=== PATIENT | male | born 1950 | race Caucasian/White ===

== ENCOUNTER 2016-12-26 04:12 | Emergency (ER) | payer BC ==
[2016-12-26] MEDS ORDERED: ASPIRIN 81 MG CHEWABLE TAB PO ONE (04:19)
--- NOTE | 2016-12-26 04:36 | EDPHY ---
H & P Stated Complaint: right sided CP to back and difficulty breathing since last night HPI/ROS: HPI CHIEF COMPLAINT: Right-sided chest pain sharp stabbing worse with inspiration HISTORY OF PRESENT ILLNESS: This patient is 66-year-old male significant past medical history for hypertension, hyperlipidemia and zev-cycnpjg-zouwutipi diabetes he is visiting [facility] from [place], he presents emergency room for right-sided sharp stabbing pleuritic chest pain worse when he takes a deep breath in. He tells me this started around 730 year 8 o'clock last night it has been consistent throughout the entire night. The pain is anterior right chest wall that radiates directly posterior to his scapula. Worse with inspiration. He denies cough, recent illness. He denies left-sided chest pain denies nausea, diaphoresis, he does endorse shortness of breath with this. No history of PE DVT. No history of ACS. No history of coronary artery disease. Denies abdominal pain. Past Medical History: Hypertension, hyperlipidemia, xll-ljjdilc-mqevuttwy diabetes, lung cyst Past Surgical History: No significant recent surgical history Social History: Denies daily use drugs alcohol tobacco products lives in [place]. Family History: Noncontributory ROS REVIEW OF SYSTEMS: A comprehensive 10 point review of systems is otherwise negative aside from elements mentioned in the history of present illness. Exam Constitutional appears well nontoxic triage nursing summary reviewed, vital signs reviewed, awake/alert. Eyes normal conjunctivae and sclera, EOMI, PERRLA. HENT normal inspection, atraumatic, moist mucus membranes, no epistaxis, neck supple/ no meningismus, no raccoon eyes. Respiratory clear to auscultation bilaterally, normal breath sounds, no respiratory distress, no wheezing. Cardiovascular rate normal, regular rhythm, no murmur, no edema, distal pulses normal. Gastrointestinal soft, non-tender, no rebound, no guarding, normal bowel sounds, no distension, no pulsatile mass. Genitourinary no CVA tenderness. Musculoskeletal no midline vertebral tenderness, full range of motion, no calf swelling, no tenderness of extremities, no meningismus, good pulses, neurovascularly intact. Skin pink, warm, & dry, no rash, skin atraumatic. Neurologic awake, alert and oriented x 3, AAOx3, moves all 4 extremities equally, motor intact, sensory intact, CN II-XII intact, normal cerebellar, normal vision, normal speech. Psychiatric normal mood/affect. Heme/Lymph/Immune no lymphadenopathy. Differential diagnosis includes but is not limited to: ACS, atypical chest pain , pneumothorax, pneumonia, pulmonary embolism, aortic dissection, congestive heart failure, tumor, musculoskeletal pain, esophageal pain, GERD, peptic ulcer disease, pancreatitis Medical Decision Making: Plan for this patient full front desk monitor, IV establishment, blood work, D-dimer, chest x-ray, EKG, troponin full-dose aspirin. Re-evaluation: EKG interpretation by me on record in [facility] system. Impression time of EKG 4:35 a.m., this is sinus arrhythmia rate of 88 there is no acute ischemic change appreciated. Specifically no ST elevation, ST depression. Q-waves are noted in lead 3 AVF. There is no old EKG to compare this to as [place]. ED x-ray chest one view: Negative for acute cardiopulmonary disease. Image interpreted by myself. 0529: Patient is feeling much better after oral aspirin. He states the sharp stabbing pain when he takes a deep breath in has greatly reduced. I had a great long discussion with him about potentially having a CT scan of his chest to rule out aortic dissection and/or PE given his symptoms. He does have risk factors including 66 years of age, obesity, typical pleuritic pain recent airline flights and his does report that he is often in mobile. It is reasonable to proceed with a CT angiogram of his chest he is agreeable for this. 0559: CT scan of the angiogram chest for pulmonary embolism and aortic dissection The results of the study are negative for PE or dissection however is noted there is a 9 mm right upper lobe nodule also bronchitis is present in his lungs. Also CAD LAD. The study was read by Dr. Smith Fatima. I viewed the images myself on the PACS system. 0600: Given this patient had right-sided pleuritic pain sharp stabbing is most likely consistent with bronchitis. This been present since 0730 last night or close to 12 hours. He has a normal nonischemic EKG his troponin is negative. D -dimer negative. His CT angiogram does not show dissection or PE. He will need to follow up with his primary care doctor about the right upper lobe pulmonary nodule that is 9 mm. Also I will place him on albuterol inhaler for his bronchitis. He does understand return emergency room if develops any worsening chest pain shortness of breath or questions or concerns. 0618: Patient receiving repeat troponin EKG at this time. If these are normal highly unlikely to be acute coronary syndrome given right-sided sharp stabbing pleuritic pain this improved after aspirin and Toradol. CT scan shows bronchitis. Patient is already aware of the pulmonary nodule. He will be prescribed albuterol inhaler. Unlikely to have ACS with 2 normal troponins given pain started 730 last night. 0627: This is a repeat EKG time a repeat EKG 6:24 a.m., sinus rhythm rate of 86 no acute ischemic changes appreciated. Image interpreted by myself. This is unchanged from his previous EKG. Source: Patient - Personal History Current Tetanus/Diphtheria Vaccine: Yes Current Tetanus Diphtheria and Acellular Pertussis (TDAP): Yes Tetanus Vaccine Date: 2013 - Medical/Surgical History Hx Asthma: No Hx Chronic Respiratory Disease: No Hx Diabetes: Yes Hx Cardiac Disease: No Hx Renal Disease: No Hx Cirrhosis: No Hx Alcoholism: No Hx HIV/AIDS: No Hx Splenectomy or Spleen Trauma: No Other PMH: HTN, thyroid removed on R, appy, DM, - Social History Smoking Status: Former smoker Constitutional: Initial Vital Signs Temperature (C) 36.5 C 12/26/16 04:13 Heart Rate 91 12/26/16 04:13 Respiratory Rate 18 12/26/16 04:13 Blood Pressure 166/93 H 12/26/16 04:13 O2 Sat (%) 97 12/26/16 04:13 O2 Delivery Mode Room Air Allergies/Adverse Reactions: sertraline [From Zoloft] Allergy (Verified 12/26/16 04:17) Abdominal Cramping Home Medications: Medication Instructions Recorded ASPIRIN 12/26/16 Albuterol [Proventil Inhaler HFA 1 - 2 puffs IH Q4H #1 mdi 12/26/16 (*)] Effexor 12/26/16 Levothyroxine 12/26/16 Lisinopril 12/26/16 Metformin HCl 12/26/16 VITAMIN D 12/26/16 Medical Decision Making - Data Points Laboratory Results: Laboratory Results 12/26/16 04:45 12/26/16 04:45 12/26/16 12/26/16 12/26/16 06:20 04:45 04:45 WBC RBC Hgb Hct MCV MCH MCHC RDW Plt Count MPV Neut % (Auto) Lymph % (Auto) Talbot % (Auto) Eos % (Auto) Baso % (Auto) Nucleat RBC Rel Count Absolute Neuts (auto) Absolute Lymphs (auto) Absolute Monos (auto) Absolute Eos (auto) Absolute Basos (auto) Absolute Nucleated RBC Immature Gran % Immature Gran # PT 12.5 SEC SEC (12.0-15.0) INR 0.94 (0.83-1.16) APTT 27.6 SEC SEC (23.0-38.0) D-Dimer 0.33 ug/mLFEU ug/mLFEU (0.00-0.50) Sodium 137 mEq/L mEq/L (134-144) Potassium 4.6 mEq/L mEq/L (3.5-5.2) Chloride 102 mEq/L mEq/L (97-110) Carbon Dioxide 22 mEq/l mEq/l (22-31) Anion Gap 13 mEq/L mEq/L (8-16) BUN 18 mg/dL mg/dL (7-23) Creatinine 1.0 mg/dL mg/dL (0.7-1.3) Estimated GFR > 60 Glucose 216 mg/dL H mg/dL (70-100) Calcium 9.9 mg/dL mg/dL (8.5-10.4) Magnesium 1.6 mg/dL mg/dL (1.6-2.3) Total Bilirubin 0.8 mg/dL mg/dL (0.1-1.4) Conjugated Bilirubin 0.5 mg/dL mg/dL (0.0-0.5) Unconjugated Bilirubin 0.3 mg/dL mg/dL (0.0-1.1) AST 45 IU/L IU/L (17-59) ALT 67 IU/L IU/L (21-72) Alkaline Phosphatase 107 IU/L IU/L (38-126) Creatine Kinase 58 IU/L IU/L (0-224) CK-MB (CK-2) Fraction 0.90 ng/mL ng/mL (0-3.19) Troponin I Pending < 0.012 ng/mL ng/mL (0-0.034) NT-Pro-B Natriuret Pep 32 pg/mL pg/mL (0-125) Total Protein 7.1 g/dL g/dL (6.3-8.2) Albumin 4.2 g/dL g/dL (3.5-5.0) Lipase 264.0 IU/L IU/L (23-300) 12/26/16 04:45 WBC 14.97 10^3/uL H 10^3/uL (3.80-9.50) RBC 5.12 10^6/uL 10^6/uL (4.40-6.38) Hgb 14.8 g/dL g/dL (13.7-17.5) Hct 44.9 % % (40.0-51.0) MCV 87.7 fL fL (81.5-99.8) MCH 28.9 pg pg (27.9-34.1) MCHC 33.0 g/dL g/dL (32.4-36.7) RDW 13.8 % % (11.5-15.2) Plt Count 265 10^3/uL 10^3/uL (150-400) MPV 10.5 fL fL (8.7-11.7) Neut % (Auto) 67.3 % % (39.3-74.2) Lymph % (Auto) 21.8 % % (15.0-45.0) Talbot % (Auto) 6.5 % % (4.5-13.0) Eos % (Auto) 2.5 % % (0.6-7.6) Baso % (Auto) 0.9 % % (0.3-1.7) Nucleat RBC Rel Count 0.0 % % (0.0-0.2) Absolute Neuts (auto) 10.08 10^3/uL H 10^3/uL (1.70-6.50) Absolute Lymphs (auto) 3.26 10^3/uL H 10^3/uL (1.00-3.00) Absolute Monos (auto) 0.97 10^3/uL H 10^3/uL (0.30-0.80) Absolute Eos (auto) 0.38 10^3/uL 10^3/uL (0.03-0.40) Absolute Basos (auto) 0.13 10^3/uL H 10^3/uL (0.02-0.10) Absolute Nucleated RBC 0.00 10^3/uL 10^3/uL (0-0.01) Immature Gran % 1.0 % % (0.0-1.1) Immature Gran # 0.15 10^3/uL H 10^3/uL (0.00-0.10) PT INR APTT D-Dimer Sodium Potassium Chloride Carbon Dioxide Anion Gap BUN Creatinine Estimated GFR Glucose Calcium Magnesium Total Bilirubin Conjugated Bilirubin Unconjugated Bilirubin AST ALT Alkaline Phosphatase Creatine Kinase CK-MB (CK-2) Fraction Troponin I NT-Pro-B Natriuret Pep Total Protein Albumin Lipase Medications Given: Discontinued Medications Aspirin (Aspirin) 324 mg PO EDNOW ONE Stop: 12/26/16 04:20 Last Admin: 12/26/16 04:50 Dose: 324 mg Sodium Chloride (Ns) 1,000 mls @ 0 mls/hr IV ONCE ONE PRN Reason: Wide Open Stop: 12/26/16 05:46 Last Admin: 12/26/16 06:22 Dose: 1,000 mls Ketorolac Tromethamine (Toradol) 15 mg IVP EDNOW ONE Stop: 12/26/16 05:31 Last Admin: 12/26/16 05:44 Dose: 15 mg Departure - Departure Disposition: Home, Routine, Self-Care Clinical Impression: Pleurisy, Pulmonary nodule, Bronchitis Condition: Good Instructions: Acute Bronchitis (ED), Pulmonary Nodules (ED), Wheezing (ED) Additional Instructions: 1. You need to follow up with her primary care doctor when you go back home in [place] about the pulmonary nodule. This is 9 mm in your right upper lung. 2. Return emergency room immediately if he develops worsening symptoms includes chest pain, shortness of breath. Referrals: KACEY CONNELL [Other] - As per Instructions Prescriptions: Albuterol [Proventil Inhaler HFA (*)] 1 - 2 puffs IH Q4H #1 mdi
--- NOTE | 2016-12-26 04:53 | CPEKG ---
Heart Rate: 88 RR Interval: 682 P-R Interval: 172 QRSD Interval: 84 QT Interval: 356 QTC Interval: 431 P [place]: 19 QRS [place]: -19 T Wave [place]: 38 EKG Severity - OTHERWISE NORMAL ECG - EKG Impression: SINUS ARRHYTHMIA, RATE 77-103 EKG Impression: BORDERLINE LEFT AXIS DEVIATION Electronically Signed By: Nakul Ordonez 26-Dec-2016 07:11:53
[2016-12-26 04:55] LABS: ABSOLUTE IMMATURE GRANULOCYTES 0.15 10^3/uL (0.00-0.10); ADD DIFF? NO; ADD MORPH? NO; ADD SCAN? NO; ATYPICAL LYMPHOCYTE FLAG 0 (0-99); FRAGMENT RBC FLAG 0 (0-99); HEMATOCRIT 44.9 % (40.0-51.0); HEMOGLOBIN 14.8 g/dL (13.7-17.5); LEFT SHIFT FLG 10 (0-99); LIPEMIA HEMOLYSIS FLAG 80 (0-99); MEAN CELL HEMOGLOBIN 28.9 pg (27.9-34.1); MEAN CELL VOLUME 87.7 fL (81.5-99.8); MEAN PLATELET VOLUME 10.5 fL (8.7-11.7); PLATELET CLUMPS FLAG 10 (0-99); PLATELET COUNT 265 10^3/uL (150-400); RED BLOOD CELL COUNT 5.12 10^6/uL (4.40-6.38); RED CELL DISTRIBUTION WIDTH 13.8 % (11.5-15.2)
[2016-12-26 05:04] LABS: INR 0.94 (0.83-1.16); PROTIME(PATIENT) 12.5 SEC (12.0-15.0)
[2016-12-26 05:05] LABS: APTT 27.6 SEC (23.0-38.0)
[2016-12-26 05:07] LABS: ALANINE AMINOTRANSFERASE 67 IU/L (21-72); ALBUMIN 4.2 g/dL (3.5-5.0); ALKALINE PHOSPHATASE 107 IU/L (38-126); ANION GAP 13 mEq/L (8-16); ASPARTATE AMINOTRANSFERASE 45 IU/L (17-59); BILIRUBIN,TOTAL 0.8 mg/dL (0.1-1.4); BILIRUBIN-CONJUGATED 0.5 mg/dL (0.0-0.5); BILIRUBIN-UNCONJUGATED 0.3 mg/dL (0.0-1.1); CALCIUM 9.9 mg/dL (8.5-10.4); CARBON DIOXIDE 22 mEq/l (22-31); CHLORIDE 102 mEq/L (97-110); GLOMERULAR FILTRATION RATE > 60; GLUCOSE 216 mg/dL (70-100); MAGNESIUM 1.6 mg/dL (1.6-2.3); POTASSIUM 4.6 mEq/L (3.5-5.2); SODIUM 137 mEq/L (134-144); TOTAL PROTEIN 7.1 g/dL (6.3-8.2)
[2016-12-26 05:18] LABS: TROPONIN I < 0.012 ng/mL (0-0.034)
[2016-12-26] MEDS ORDERED: IOPAMIDOL (ISOVUE 370) 100 ML BTL IV ONE (05:24)
[2016-12-26] MEDS ORDERED: KETOROLAC 30 MG/1 ML SDV IVP ONE (05:30)
[2016-12-26] MEDS ORDERED: KETOROLAC 15 MG/1 ML SDV ONE (05:44)
[2016-12-26] MEDS ORDERED: NS 1,000 ML IV ONE (05:45)
[2016-12-26 06:23] VITALS: PULSE 83; RESP 16
--- NOTE | 2016-12-26 06:27 | CPEKG ---
Heart Rate: 86 RR Interval: 698 P-R Interval: 180 QRSD Interval: 86 QT Interval: 356 QTC Interval: 426 P Freedom: 30 QRS [place]: -12 T Wave [place]: 58 EKG Severity - NORMAL ECG - EKG Impression: SINUS RHYTHM Electronically Signed By: Nakul Ordonez 26-Dec-2016 07:11:53
[2016-12-26 07:06] VITALS: BP 167/98; TEMP 98.1; O2SAT 94
== END 2016-12-26 07:05 | disposition home or self-care (01) ==
DX: J40 Bronchitis, not specified as acute or chronic (principal); R91.1 Solitary pulmonary nodule; I10 Essential (primary) hypertension; E11.9 Type 2 diabetes mellitus without complications; Z79.82 Long term (current) use of aspirin; Z79.84 Long term (current) use of oral hypoglycemic drugs; Z87.891 Personal history of nicotine dependence
CPT/HCPCS: 96374; J1885; Q9967